=== PATIENT | female | born 1930 | race Caucasian/White ===

== ENCOUNTER 2020-05-11 17:57 | Inpatient (IN) | payer MEDICARE, BC ==
[2020-05-11] MEDS ORDERED: Polyethylene Glycol 3350 17 GM Packet PO PRN (22:34)
[2020-05-11] MEDS: Acetaminophen 500 MG TAB PO SCH ×2 (23:10→23:59)
[2020-05-11] MEDS: Cyclobenzaprine 10 MG TAB PO PRN (23:59)
[2020-05-12] MEDS: traMADol HCl 50 MG TAB PO PRN ×2 (01:52→23:27)
[2020-05-12 05:28] LABS: #Eosinphils 0.3 thou/uL (0.0-0.7); #Monocytes 0.7 thou/uL (0.11-0.59); #Neutrophils 8.6 thou/uL (1.40-6.50); %Basophils 0.3 % (0.0-1.0); %Eosinophils 2.4 % (0.0-10.0); %Lymphocytes 9.7 % (21.0-51.0); %Monocytes 6.4 % (0.0-10.0); %Neutrophils 81.2 % (42.0-75.0); Hemoglobin 10.2 g/dL (12.0-16.0); Mean Corpuscular HGB CONC 31.4 g/dL (32.0-36.0); Mean Corpuscular Hemoglobin 30.7 pg (27.0-31.0); Mean Platelet Volume 6.7 fL (7.4-10.4); Platelet Count 283 thou/uL (130-400); RBC Distribution Width 14.4 % (11.5-14.5); Red Blood Cell (RBC) Count 3.31 mill/uL (4.20-5.40); White Blood Cell (WBC) Count 10.5 thou/uL (4.8-10.8)
[2020-05-12 05:44] LABS: ALT (SGPT) 17 U/L (8-55); AST (SGOT) 19 U/L (5-34); Albumin 2.8 g/dL (3.4-4.8); Alkaline Phosphatase 60 U/L (40-110); Anion Gap 10 mmol/L (10-20); BUN (Urea Nitrogen) 19 mg/dL (9.8-20.1); Calc. Creatinine Clearance 104 mL/min (70-130); Calcium 9.5 mg/dL (7.8-10.44); Carbon Dioxide 27 mmol/L (23-31); Chloride 102 mmol/L (98-107); Estimated GFR-MDRD Greater than 90; Globulin 2.2 g/dL (2.4-3.5); Glucose 137 mg/dL (83-110); Potassium 4.2 mmol/L (3.5-5.1); Sodium 135 mmol/L (136-145)
[2020-05-12] MEDS: Levothyroxine 150 MCG TAB PO SCH (06:07)
[2020-05-12] MEDS: Acetaminophen 500 MG TAB PO SCH ×4 (06:07→23:27)
[2020-05-12] MEDS: Enoxaparin Sodium 30 MG/0.3 ML SYRINGE SC SCH ×2 (08:59→20:26)
[2020-05-12] MEDS: Lisinopril 20 MG TAB PO SCH ×2 (09:00→20:23)
[2020-05-12] MEDS: Ascorbic Acid 500 mg Chewable Tablet PO SCH ×2 (09:00→20:23)
[2020-05-12] MEDS: Fenofibrate Nanocrystallized 145 MG TAB PO SCH (09:01)
[2020-05-12] MEDS: Senokot S 8.6-50 MG TAB PO SCH ×2 (09:02→20:23)
[2020-05-12] MEDS: Ferrous Sulfate 325 MG TAB PO SCH ×2 (09:02→17:15)
[2020-05-12] MEDS: Gabapentin 100 MG CAP PO SCH ×3 (09:02→20:22)
[2020-05-12] MEDS: Magnesium Oxide 400 MG TAB PO SCH ×2 (09:02→20:23)
[2020-05-12] MEDS: Aspirin Chewable 81 MG TAB PO SCH (09:02)
[2020-05-12] MEDS: Cyclobenzaprine 10 MG TAB PO PRN (20:23)
[2020-05-12] MEDS: Atorvastatin Calcium 10 MG TAB PO SCH (20:23)
[2020-05-12] MEDS: Erythromycin Base 0.5% Oint 1 GM TUBE EA EYE SCH (20:26)
[2020-05-13] MEDS: Acetaminophen 500 MG TAB PO SCH ×4 (05:55→20:22)
[2020-05-13] MEDS: Levothyroxine 150 MCG TAB PO SCH (05:55)
--- NOTE | 2020-05-13 08:05 | HP ---
Patient of Dr. Robert Coyle. HISTORY OF PRESENT ILLNESS: The patient is an 89-year-old white female who has fallen and suffered bilateral distal femur periprosthetic fractures around her bilateral total knee replacements. These were documented as open fractures. She was given antibiotics and tetanus shot, and subsequently underwent open reduction and internal fixation with only complications of postoperative blood-loss, mild acute kidney injury. She was also found to have a T8 vertebral body fracture, but Neurosurgery is only recommended TLSO brace. She has had fair pain controlled well at the hospital at [place] and therefore, has been transferred here for continued physical therapy and care. She has comorbidities of atrial fibrillation, which is only rate controlled with only anticoagulation with aspirin. She has had a history of diverticulitis, status post partial colectomy for GI bleed with no recurrence. She has a history of hypertension, controlled to goal and recurrent urinary tract infections. PAST SURGICAL HISTORY: Positive for pacemaker placement, partial colectomy secondary to diverticulitis, multiple back surgeries, carpal tunnel surgery, bilateral knee replacements, cholecystectomy, tonsillectomy, and hysterectomy. SOCIAL HISTORY: She has been living alone at home, walking with a walker as her lives in assisted living. She is a nonsmoker, nondrinker. MEDICATIONS: On admission included: 1. Atorvastatin 10 mg nightly. 2. Flexeril 5 mg three times daily as needed. 3. Lovenox 30 mg twice daily. 4. TriCor 145 mg daily. 5. Ferrous sulfate 325 mg twice daily. 6. Vitamin C 500 twice daily. 7. Levothyroxine 150 mcg daily. 8. Lisinopril 40 mg twice daily. 9. Magnesium oxide twice daily. 10. Metoprolol 100 mg daily. 11. Pantoprazole 40 mg twice daily. 12. MiraLAX 17 g daily. 13. Tramadol 100 mg every 6 hours as needed for pain. REVIEW OF SYSTEMS: HEENT: She denies any headaches, dizziness, change in vision, hoarseness, or sore throat. PULMONARY: She denies cough, sputum production, pneumonia, asthma, or tuberculosis. CARDIOVASCULAR: She denies chest pain, orthopnea, paroxysmal nocturnal dyspnea, or edema. GASTROINTESTINAL: She denies nausea, vomiting, diarrhea, constipation, or abdominal pain. GENITOURINARY: Denies dysuria, hematuria, or nocturia. MUSCULOSKELETAL: She has bilateral fractures and complains of pain in both knees and legs. NEUROLOGIC: She denies localized numbness, weakness in arms or extremities. PHYSICAL EXAMINATION: GENERAL: The patient is an elderly white female, lying in bed, in no acute distress. Oriented x3. Only complaining about her TLSO brace. VITAL SIGNS: Showed to have temperature 97.8, pulse 84, respirations 20, O2 sats 94% on room air, and blood pressure 141/61. HEENT: Pupils are equal, round, and reactive to light and accommodation. Sclerae anicteric. Conjunctivae pale. Oral mucous membranes well hydrated. NECK: Supple. No nodes or masses. JVP is not elevated. LUNGS: Clear. CARDIAC: Shows regular rhythm. ABDOMEN: Soft and nontender. SKIN AND EXTREMITIES: Show bilateral lower leg incisions healing well. No edema, clubbing, cyanosis, or swelling of the calves. NEUROLOGIC: Intact. LABORATORY DATA: None will be done in the a.m. ASSESSMENT: An 89-year-old white female with history of recent bilateral distal femur periprosthetic fractures for prosthetic knee replacement, is recovering well with no complications , antibiotics have been given but are not required any further, although this was documented as open fracture. 1. Atrial fibrillation with rate controlled with no anticoagulation. 2. T8 vertebral body fracture, being treated with TLSO brace. 3. History of gastrointestinal bleed secondary to diverticulitis with no recent recurrence. 4. Hypertension, controlled to goal. 5. Recurrent urinary tract infection. We will monitor closely. Job ID: [id number]
--- NOTE | 2020-05-13 09:16 | PRG ---
DATE OF SERVICE: 05/12/[address] Licha Coyle. SUBJECTIVE: The patient feels well in the bed. No complaints other than uncomfortable TLSO brace. No shortness of breath or chest pain. OBJECTIVE: VITAL SIGNS: Shows temperature is 98, pulse 59, respirations 18, O2 saturations 97% on room air, and blood pressure is 148/58. LUNGS: Clear. CARDIAC: Shows regular rhythm. ABDOMEN: Soft and nontender. LABORATORY DATA: White count is 10,500, hematocrit 32. Sodium is 135, potassium 4.2, chloride 102, bicarb 27, BUN 19, creatinine 0.62, glucose 137, protein 5.0, albumin 2.8, and globulin 2.2. ASSESSMENT: 1. Stable bilateral periprosthetic distal femur fractures. 2. Stable T8 compression fracture. 3. Stable atrial fibrillation with rate controlled with no anticoagulation. 4. Hypertension, controlled to goal. 5. Recurrent UTIs. PLAN: 1. Continue pain relief with tramadol. 2. Continue PT/OT. 3. Continue prophylactic anticoagulation for 8 weeks per recommendation of Orthopedic Surgery. 4. Monitor for recurrent diverticular bleeding. Job ID: [id number]
[2020-05-13] MEDS: Lisinopril 20 MG TAB PO SCH ×2 (09:21→20:37)
[2020-05-13] MEDS: Enoxaparin Sodium 30 MG/0.3 ML SYRINGE SC SCH ×3 (09:21→20:41)
[2020-05-13] MEDS: Fenofibrate Nanocrystallized 145 MG TAB PO SCH (09:22)
[2020-05-13] MEDS: Aspirin Chewable 81 MG TAB PO SCH (09:23)
[2020-05-13] MEDS: Magnesium Oxide 400 MG TAB PO SCH ×2 (09:23→20:38)
[2020-05-13] MEDS: Gabapentin 100 MG CAP PO SCH ×3 (09:23→20:39)
[2020-05-13] MEDS: Senokot S 8.6-50 MG TAB PO SCH ×2 (09:23→20:38)
[2020-05-13] MEDS: Ferrous Sulfate 325 MG TAB PO SCH ×2 (09:23→16:42)
[2020-05-13] MEDS: Ascorbic Acid 500 mg Chewable Tablet PO SCH ×2 (09:23→20:37)
[2020-05-13 17:57] VITALS: BMI 40.5
[2020-05-13] MEDS ORDERED: Erythromycin Base 0.5% Oint 1 GM TUBE ONE (20:26)
[2020-05-13] MEDS: Erythromycin Base 0.5% Oint 1 GM TUBE EA EYE SCH (20:37)
[2020-05-13] MEDS: Atorvastatin Calcium 10 MG TAB PO SCH (20:38)
[2020-05-13] MEDS: Cyclobenzaprine 10 MG TAB PO PRN (20:38)
[2020-05-14] MEDS: traMADol HCl 50 MG TAB PO PRN
[2020-05-14] MEDS: Levothyroxine 150 MCG TAB PO SCH (05:49)
[2020-05-14] MEDS: Acetaminophen 500 MG TAB PO SCH ×4 (05:49→17:33)
[2020-05-14] MEDS: Aspirin Chewable 81 MG TAB PO SCH (08:05)
[2020-05-14] MEDS: Ascorbic Acid 500 mg Chewable Tablet PO SCH ×3 (08:05→23:19)
[2020-05-14] MEDS: Ferrous Sulfate 325 MG TAB PO SCH ×2 (08:05→17:33)
[2020-05-14] MEDS: Fenofibrate Nanocrystallized 145 MG TAB PO SCH (08:05)
[2020-05-14] MEDS: Enoxaparin Sodium 30 MG/0.3 ML SYRINGE SC SCH ×2 (08:05→20:12)
[2020-05-14] MEDS: Magnesium Oxide 400 MG TAB PO SCH ×2 (08:06→20:11)
[2020-05-14] MEDS: Gabapentin 100 MG CAP PO SCH ×3 (08:06→20:12)
[2020-05-14] MEDS: Lisinopril 20 MG TAB PO SCH ×2 (08:06→20:13)
[2020-05-14] MEDS: Senokot S 8.6-50 MG TAB PO SCH ×2 (08:07→20:12)
--- NOTE | 2020-05-14 19:32 | PRG ---
DATE OF SERVICE: 05/13/2020 SUBJECTIVE: The patient feels well lying in bed with no complaints of pain at rest. OBJECTIVE: VITAL SIGNS: Temperature is 97, pulse 71, respirations 20, O2 sats 95% on room air, and blood pressure 118/57. LUNGS: Clear. CARDIAC: Shows irregularly irregular rhythm. ABDOMEN: Soft and nontender. ASSESSMENT: 1. Stable bilateral periprosthetic distal femur fracture. 2. Stable compression fracture T8. 3. Stable atrial fibrillation with rate control. 4. Hypertension, controlled to goal. PLAN: Dr. Coyle back tonight. Continue pain relief with tramadol. Start PT/OT tomorrow. Continue prophylactic anticoagulation for 8 weeks per recommendation of orthopedic surgeon. Job ID: [id number]
--- NOTE | 2020-05-14 20:05 | PRG ---
DATE OF SERVICE: 05/14/2020 SUBJECTIVE: Ms. Munson is an 89-year-old white female, who was very independent and was at her home where she lives by herself. She was changing something on the oven door when she slipped and fell landing on both knees. She had immediate pain and had compound fractures of the distal femur, which is periprosthetic bilaterally. She was taken to the surgical suite, had to have some blood, but she had open reduction and internal fixation. She also had a T8 vertebral body fracture and was seen by Neurosurgery, who recommended a TLSO brace. She eventually was stabilized and transferred to [facility] for physical therapy and occupational therapy and pain management. She does have a history of diverticulitis status post colectomy, history of hypertension, history of recurrent urinary tract infections, and history of atrial fib for which she is not on anticoagulants because of her GI bleed. The patient states she is doing fairly well, eating well, not constipated. She states her pain is fairly well controlled. She has not had a great track record yet with physical therapy. She is nonweightbearing for 8 weeks and has bilateral leg braces. We will try to do some physical therapy if unable or she is plateaued. Then, we will need to transfer her [facility] a [facility] facility. OBJECTIVE: VITAL SIGNS: Today reveal blood pressure 114/50, pulse 60 to 66, respirations 16, O2 saturation 95% on room air, T-max 98.0. GENERAL: This is a well-developed, well-nourished, very pleasant 89-year-old independent white female, in no apparent distress at this time. HEENT: Reveals normocephalic, nontraumatic cranium. The pupils are equally round and reactive. Extraocular muscles intact. Nose and throat are slightly dry. NECK: Supple without masses, nodes, or bruits. CHEST: Clear to auscultation. No rales, rhonchi, wheezes, or cough is noted. HEART: Reveals a regular rate and rhythm. No murmurs, gallops, or rubs are noted. ABDOMEN: Difficult because of her TLSO brace, which is on. It is soft and nontender. : Deferred. EXTREMITIES: Reveal bilateral lower leg incisions and braces on. The patient has no significant swelling noted. NEUROLOGIC: She is intact. ASSESSMENT: 1. Bilateral distal femur periprosthetic fractures post ORIF. 2. Atrial fibrillation, rate controlled on no anticoagulation except for aspirin. 3. T8 vertebral fracture, treated with TLSO brace. 4. Hypertension. 5. History of recurrent urinary tract infections. 6. History of diverticulitis with gastrointestinal bleed in the past. PLAN: 1. Continue present medications. 2. Consult for Physical therapy and Occupational therapy. 3. Continue to monitor the patient's rate and continue aspirin. 4. Wear the patient's TLSO brace any time. Head of her bed is higher than 30 degrees. 5. Monitor the patient's blood pressure closely, adjust medications as needed. 6. Monitor for recurrent urinary tract infections. 7. Stress ulcer prophylaxis. 8. Decubitus precautions. 9. DVT prophylaxis. 10. Comfort measures as needed. Job ID: [id number]
[2020-05-14] MEDS: Atorvastatin Calcium 10 MG TAB PO SCH (20:11)
[2020-05-14] MEDS: Erythromycin Base 0.5% Oint 1 GM TUBE EA EYE SCH (20:12)
[2020-05-15] MEDS: Acetaminophen 500 MG TAB PO SCH ×5 (00:09→23:19)
[2020-05-15] MEDS: traMADol HCl 50 MG TAB PO PRN ×2 (00:10→23:19)
[2020-05-15] MEDS: Levothyroxine 150 MCG TAB PO SCH (05:00)
[2020-05-15] MEDS: Ascorbic Acid 500 mg Chewable Tablet PO SCH ×2 (08:31→20:25)
[2020-05-15] MEDS: Fenofibrate Nanocrystallized 145 MG TAB PO SCH (08:31)
[2020-05-15] MEDS: Ferrous Sulfate 325 MG TAB PO SCH ×2 (08:31→17:22)
[2020-05-15] MEDS: Aspirin Chewable 81 MG TAB PO SCH (08:31)
[2020-05-15] MEDS: Enoxaparin Sodium 30 MG/0.3 ML SYRINGE SC SCH ×2 (08:31→20:30)
[2020-05-15] MEDS: Gabapentin 100 MG CAP PO SCH ×3 (08:32→20:31)
[2020-05-15] MEDS: Lisinopril 20 MG TAB PO SCH ×2 (08:32→20:30)
[2020-05-15] MEDS: Magnesium Oxide 400 MG TAB PO SCH ×2 (08:32→20:31)
[2020-05-15] MEDS: Senokot S 8.6-50 MG TAB PO SCH ×2 (08:33→20:31)
--- NOTE | 2020-05-15 10:24 | PRG ---
DATE OF SERVICE: 05/15/2020 SUBJECTIVE: Ms. Munson is an 89-year-old white female. She has been very independent and has been living by herself. Unfortunately, she fell at home landing on both her knees. She previously had bilateral knee surgery, and these were compound fractures of the distal femur periprosthetic area. She was taken to surgical suite, had open reduction and internal fixation and some blood. She also had a T8 vertebral compression fracture. She was seen by Neurosurgery, who did not recommend surgery on her back, but a TLSO brace. She was eventually stabilized and now transferred to [facility] for PT, OT, and pain management. The patient states she is doing fairly well, and her pain is fairly well under good control. I did talk with Therapy while the patient and the therapists were in the room. She is supposed to be nonweightbearing on her legs for at least 8 weeks and possibly 12. I told her that most likely her therapy will run out before that, and we will most likely have to transfer her to a different facility for continued therapy. She is supposed to see Dr. Arturo Segovia on to get an idea about what our time slot is. When she plateaus, we will transfer her to halfway. OBJECTIVE: VITAL SIGNS: Today reveal blood pressure 123/71, pulse 64, respirations 20, O2 saturation 98% on room air, and T-max 98.1. PHYSICAL EXAMINATION: GENERAL: This is a well-developed, well-nourished, slightly obese white female, in no apparent distress at this time. HEENT: Reveals normocephalic and nontraumatic cranium. The pupils are equally round and reactive. Extraocular movements intact. Nose and throat are slightly dry. NECK: Supple without masses, nodes, or bruits. CHEST: Clear to auscultation. No rales, rhonchi, or wheezes are heard. HEART: Reveals a regular rate and rhythm without murmurs, gallops, or rubs. She does have a history of atrial fibrillation, but is not on anticoagulants because of her GI bleed in the past. She is rate controlled today. ABDOMEN: Soft and nontender. TLSO braces in place. : Deferred. EXTREMITIES: Reveal bilateral lower leg incisions and braces on. The right brace goes about 45 degrees and left brace set at 0. Swelling is minimal at this time. ASSESSMENT: 1. Bilateral distal femur periprosthetic fracture, status post open reduction and internal fixation. 2. Atrial fibrillation, rate controlled. The patient is on no anticoagulation except aspirin. 3. T8 vertebral compression fracture, treated with TLSO brace, nonsurgical. 4. Hypertension. 5. History of diverticulitis with gastrointestinal bleed in the past. 6. History of recurrent urinary tract infections. 7. Pain. 8. Generalized weakness. PLAN: 1. We will continue present medications. 2. Continue to monitor the patient's heart rate and continue aspirin. 3. Continue the patient to wear TLSO brace anytime her head of bed is greater than 30 degrees. 4. Continue to monitor the patient's blood pressure closely and adjust medications if needed. 5. Monitor for urinary tract infections. 6. Stress ulcer prophylaxis. 7. Decubitus precautions. 8. DVT prophylaxis. 9. Pain management. 10. Comfort measures. 11. Physical therapy and occupational therapy. Job ID: [id number]
[2020-05-15] MEDS: Cyclobenzaprine 10 MG TAB PO PRN (20:30)
[2020-05-15] MEDS: Atorvastatin Calcium 10 MG TAB PO SCH (20:31)
[2020-05-15] MEDS: Erythromycin Base 0.5% Oint 1 GM TUBE EA EYE SCH (20:32)
[2020-05-16] MEDS: Acetaminophen 500 MG TAB PO SCH ×4 (06:00→23:01)
[2020-05-16] MEDS: Levothyroxine 150 MCG TAB PO SCH (06:00)
[2020-05-16] MEDS: Ascorbic Acid 500 mg Chewable Tablet PO SCH ×2 (08:55→21:10)
[2020-05-16] MEDS: Lisinopril 20 MG TAB PO SCH ×2 (08:55→21:09)
[2020-05-16] MEDS: Fenofibrate Nanocrystallized 145 MG TAB PO SCH (08:55)
[2020-05-16] MEDS: Enoxaparin Sodium 30 MG/0.3 ML SYRINGE SC SCH ×2 (08:55→21:09)
[2020-05-16] MEDS: Senokot S 8.6-50 MG TAB PO SCH ×2 (08:56→21:08)
[2020-05-16] MEDS: Aspirin Chewable 81 MG TAB PO SCH (08:57)
[2020-05-16] MEDS: Ferrous Sulfate 325 MG TAB PO SCH ×2 (08:57→17:02)
[2020-05-16] MEDS: Magnesium Oxide 400 MG TAB PO SCH ×2 (08:57→21:08)
[2020-05-16] MEDS: Gabapentin 100 MG CAP PO SCH ×3 (08:57→21:08)
--- NOTE | 2020-05-16 17:26 | PRG ---
DATE OF SERVICE: 05/16/2020 SUBJECTIVE: Ms. Munson is a very pleasant 89-year-old white female. She is living by herself and her lives at [facility] because he needs extra care. Unfortunately, she was at home in moving her oven door off her oven when it started slipping and she lost her balance and fell. She landed on both of her knees. She had immediate pain and was brought to the emergency room and found to have compound fracture of the distal femur periprosthetic area. She was taken to the surgical suite by Dr. Segovia and had bilateral ORIF done and then placed in braces. She also had a T8 vertebral compression fracture and had a TLSO brace placed for that. She eventually was stabilized and transferred to [facility] for PT, OT, and pain management. The patient is unable to do a lot of PT and OT. We are working with transferring her back and forth to the wheelchair and to the potty, but Therapy did recommend that when therapy was completed, she is able to transfer that we transfer her to a long-term care facility until her weightbearing status changes. We need to say those skilled days for when she can participate and start walking. I certainly agree. I have called Alondra Willson, the web coordinator at [phone]. I left a message for her along those lines. I left my cell number for her to call me in case she has any questions. OBJECTIVE: VITAL SIGNS: Today reveal blood pressure 138/63, pulse 76, respirations 18, O2 saturation 96% on room air, and T-max 96.0. GENERAL: This is a well-developed, well-nourished, morbidly obese white female, who is visiting with her daughter. HEENT: Reveals normocephalic. Healing cranium from contusion on her face with a hematoma. Pupils are equally round and reactive. Extraocular movements are intact. Nose and throat are still slightly dry. NECK: Supple without masses, nodes, or bruits. CHEST: Clear to auscultation. No rales, no rhonchi. No wheezes are heard. HEART: Reveals a regular rate and rhythm. She does have a history of atrial fibrillation and is not on anticoagulants because of her GI bleed in the past and risk of bleeding again. She is rate controlled. ABDOMEN: Obese, soft, and nontender. TLSO brace is in place. : Deferred. EXTREMITIES: Reveal bilateral lower extremity incisions are clean. Braces are on. Right brace is to move about 45 degrees and left brace is set at 0. Swelling is minimal. ASSESSMENT: 1. Bilateral distal femur periprosthetic fracture, status post open reduction and internal fixation, still on nonweightbearing bilaterally. 2. Atrial fibrillation, rate controlled. The patient is on no anticoagulation because of previous gastrointestinal bleed except she is on aspirin daily. 3. T8 vertebral compression fracture, treated with a TLSO brace. 4. Hypertension. 5. History of diverticulitis with gastrointestinal bleed in the recent past. 6. History of recurrent urinary tract infections. 7. Pain. 8. Generalized weakness. PLAN: 1. Continue present medications. 2. Continue to monitor the patient's heart rate and continue aspirin. 3. Continue to encourage the patient to wear TLSO brace at anytime the head of the bed is greater than 30 degrees. 4. Continue to monitor the patient's blood pressure closely and adjust medications if needed. 5. Monitor for UTIs. 6. Stress ulcer prophylaxis. 7. Decubitus precautions. 8. DVT prophylaxis. 9. Pain management. 10. Comfort measures. 11. The patient is still nonweightbearing on both of her lower extremities. 12. Physical therapy and occupational therapy. 13. Case management consult for transferred to long-care facility. Job ID: [id number] [facility]
[2020-05-16] MEDS: Cyclobenzaprine 10 MG TAB PO PRN (21:07)
[2020-05-16] MEDS: Erythromycin Base 0.5% Oint 1 GM TUBE EA EYE SCH (21:08)
[2020-05-16] MEDS: Atorvastatin Calcium 10 MG TAB PO SCH (21:09)
[2020-05-16] MEDS: traMADol HCl 50 MG TAB PO PRN (23:01)
[2020-05-17] MEDS: Acetaminophen 500 MG TAB PO SCH ×3 (05:34→17:06)
[2020-05-17] MEDS: Levothyroxine 150 MCG TAB PO SCH (05:34)
[2020-05-17] MEDS: Fenofibrate Nanocrystallized 145 MG TAB PO SCH (08:34)
[2020-05-17] MEDS: Lisinopril 20 MG TAB PO SCH ×2 (08:34→21:24)
[2020-05-17] MEDS: Enoxaparin Sodium 30 MG/0.3 ML SYRINGE SC SCH ×2 (08:34→21:23)
[2020-05-17] MEDS: Ascorbic Acid 500 mg Chewable Tablet PO SCH ×2 (08:34→21:23)
[2020-05-17] MEDS: Gabapentin 100 MG CAP PO SCH ×3 (08:35→21:24)
[2020-05-17] MEDS: Aspirin Chewable 81 MG TAB PO SCH (08:35)
[2020-05-17] MEDS: Magnesium Oxide 400 MG TAB PO SCH ×2 (08:35→21:24)
[2020-05-17] MEDS: Ferrous Sulfate 325 MG TAB PO SCH ×2 (08:35→17:06)
[2020-05-17] MEDS: Senokot S 8.6-50 MG TAB PO SCH ×2 (08:35→21:24)
[2020-05-17] MEDS ORDERED: Bisacodyl 10 MG SUPP PR PRN (09:46)
[2020-05-17] MEDS ORDERED: Bisacodyl 10 MG SUPP PR SCH (10:00)
--- NOTE | 2020-05-17 10:26 | PRG ---
DATE OF SERVICE: 05/17/2020 SUBJECTIVE: Ms. Munson is an 89-year-old white female, who was at home when she fell landing on both knees. She had immediate pain. She previously had bilateral total knees done and she had a periprosthetic bilateral distal femur fractures. She was taken to the OR suite by Dr. Segovia and had a bilateral ORIF done. She was then placed in braces and she also had a T8 vertebral compression fracture and was instructed to wear brace. She eventually was stabilized, transferred to [facility] for PT, OT, and pain management. The patient reports that she is not able to do much therapy since she is nonweightbearing on both her lower extremities. I did talk with Alondra Willson this morning, the piano case and bench assembler and she will look into transferring her to a long-term care facility. She states she will contact both the patient and the daughter. OBJECTIVE: VITAL SIGNS: Today reveal blood pressure 123/71, pulse 67, respirations 20, O2 saturation 96%, and T-max 97.1. GENERAL: This is a well-developed, well-nourished, obese white female, in no apparent distress at this time. HEENT: Normocephalic and nontraumatic cranium. Pupils are equally round and reactive. Extraocular movements are intact. Nose and throat are slightly dry. NECK: Supple without masses, nodes, or bruits. CHEST: Clear to auscultation. No rales, rhonchi, wheezes are heard. HEART: Reveals a regular rate and rhythm. The patient does have a history of atrial fibrillation and is not on anticoagulation because of prior GI bleed and the risk of bleeding again. She is rate controlled. ABDOMEN: Obese, soft, nontender without organomegaly. TLSO braces in place. No rebound or guarding is noted. : Deferred. EXTREMITIES: Reveal lower extremity incisions are clean. Braces are on. ASSESSMENT: 1. Bilateral distal femur periprosthetic fracture, status post open reduction and internal fixation, still nonweightbearing bilaterally for 8 to 12 weeks. 2. Atrial fibrillation, rate controlled. The patient is on no anticoagulation secondary to prior GI bleed, but she is on aspirin. 3. T8 vertebral compression fracture and treated with TLSO brace. 4. Hypertension. 5. History of diverticulitis with GI bleed in the recent past. 6. History of recurrent urinary tract infection. 7. Pain. 8. Generalized weakness. PLAN: 1. Continue to monitor the patient's heart rate. Continue with aspirin. 2. Continue to encourage the patient to wear her TLSO brace at all times, anytime her head of the bed is greater than 30 degrees. 3. Monitor the patient's blood pressure closely. Adjust medications. 4. Monitor for UTIs. 5. Stress ulcer prophylaxis. 6. Decubitus precautions. 7. DVT prophylaxis. 8. Pain management. 9. Comfort measures. 10. The patient is noted to be nonweightbearing on both lower extremities. 11. Physical therapy and occupational therapy. 12. water/wastewater project manager to consult for transfer to long-term care facility. Job ID: [id number]
[2020-05-17] MEDS: Atorvastatin Calcium 10 MG TAB PO SCH (21:24)
[2020-05-17] MEDS: Erythromycin Base 0.5% Oint 1 GM TUBE EA EYE SCH (21:25)
[2020-05-18] MEDS: Acetaminophen 500 MG TAB PO SCH ×4 (02:42→16:23)
[2020-05-18] MEDS: traMADol HCl 50 MG TAB PO PRN ×2 (02:43→08:51)
[2020-05-18] MEDS: Levothyroxine 150 MCG TAB PO SCH (06:19)
[2020-05-18] MEDS: Gabapentin 100 MG CAP PO SCH ×3 (08:48→20:49)
[2020-05-18] MEDS: Senokot S 8.6-50 MG TAB PO SCH ×2 (08:48→20:49)
[2020-05-18] MEDS: Fenofibrate Nanocrystallized 145 MG TAB PO SCH (08:48)
[2020-05-18] MEDS: Magnesium Oxide 400 MG TAB PO SCH ×2 (08:48→20:48)
[2020-05-18] MEDS: Ascorbic Acid 500 mg Chewable Tablet PO SCH ×2 (08:49→20:49)
[2020-05-18] MEDS: Ferrous Sulfate 325 MG TAB PO SCH ×2 (08:49→17:02)
[2020-05-18] MEDS: Aspirin Chewable 81 MG TAB PO SCH (08:49)
[2020-05-18] MEDS: Lisinopril 20 MG TAB PO SCH ×2 (08:50→20:48)
[2020-05-18] MEDS: Enoxaparin Sodium 30 MG/0.3 ML SYRINGE SC SCH ×2 (08:50→20:49)
--- NOTE | 2020-05-18 15:33 | PRG ---
DATE OF SERVICE: 05/18/2020 SUBJECTIVE: Ms. Munson is a well-developed, slightly obese 89-year-old white female, who fell at home. She had immediate pain and had bilateral total knees done and had a periprosthetic bilateral distal femur fractures. She was taken to the OR suite by Dr. Segovia for bilateral ORIF. She was then placed in braces and deemed to be nonweightbearing for 8 to 12 weeks. She also had a T8 vertebral compression fracture and was issued a TLSO brace. She is to wear it any time her head of the bed is greater than 30 degrees. She eventually was stabilized and now transferred to [facility] for PT, OT, and pain management. She is not able to do very much in therapy, so we did consult Alondra Willson for Case Management. It was felt that she would benefit from a long-term care facility and then when she is able to able to participate in physical therapy and occupational therapy, we will move her back to swing bed for continued care. We would rather not use up her swing bed days with just routine care. OBJECTIVE: VITAL SIGNS: Blood pressure 145/60, pulse 60 to 75, respirations 18 to 20, O2 saturation 96% to 98% on room air, T-max 97.2. GENERAL: This is a well-developed, well-nourished, overweight white female, in no apparent distress at this time. HEENT: Normocephalic and nontraumatic cranium. Pupils equally round, reactive. Extraocular movement is intact. Nose and throat are slightly dry. NECK: Supple without masses, nodes, or bruits. CHEST: Clear to auscultation. No rales, rhonchi, wheezes, or cough is heard. HEART: Regular rate and rhythm. The patient is rate controlled, does have a history of atrial fibrillation. She is not on any anticoagulation because of prior GI bleed and her increased risk of bleeding again. ABDOMEN: Obese, soft, nontender without organomegaly. Normal bowel sounds are noted. No rebound or guarding is noted. TLSO brace is in place. No rebound or guarding is noted. : Deferred. EXTREMITIES: Lower extremity incisions are good. Braces are on. ASSESSMENT: 1. Bilateral distal femur periprosthetic fracture, status post open reduction and internal fixation, both lower extremities, and the patient is still nonweightbearing for 8 to 12 weeks. 2. Atrial fibrillation, rate controlled, on no anticoagulation secondary to prior GI bleed, but she is on aspirin. 3. T8 vertebral compression fracture, treated with TLSO brace. 4. Hypertension. 5. History of diverticulitis with GI bleed in the recent past. 6. History of recurrent urinary tract infection. 7. Generalized weakness. I did contact Alondra Willson for Case Management. Case Management has contacted both Ms. Munson and her daughter and is working on placement in a long-term care facility. They hope to have her transferred on Thursday or Thursday. PLAN: 1. Continue with plans for long-term facility admission until the patient is able to participate for PT and OT. 2. Continue to monitor the patient's heart rate. 3. Continue aspirin. 4. Continue to encourage the patient to wear TLSO brace at all times any time the head of bed is greater than 30 degrees. 5. Monitor the patient's blood pressure closely, adjust medications. 6. Monitor for urinary tract infections. 7. Stress ulcer prophylaxis. 8. Decubitus precautions. 9. DVT prophylaxis. 10. Pain management. 11. Comfort measures. 12. Physical therapy, Occupational therapy for transfers, but the patient is noted to be nonweightbearing on both lower extremities. 13. Case Management for transferred to long-term acute care facility. Job ID: [id number]
[2020-05-18] MEDS: Atorvastatin Calcium 10 MG TAB PO SCH (20:48)
[2020-05-18] MEDS ORDERED: Erythromycin Base 0.5% Oint 1 GM TUBE ONE (21:07)
[2020-05-18] MEDS: Erythromycin Base 0.5% Oint 1 GM TUBE EA EYE SCH (21:09)
[2020-05-19] MEDS: Acetaminophen 500 MG TAB PO SCH ×5 (00:16→23:38)
[2020-05-19] MEDS: Levothyroxine 150 MCG TAB PO SCH (04:56)
[2020-05-19] MEDS: Enoxaparin Sodium 30 MG/0.3 ML SYRINGE SC SCH ×2 (08:17→21:17)
[2020-05-19] MEDS: Ferrous Sulfate 325 MG TAB PO SCH ×2 (08:17→17:55)
[2020-05-19] MEDS: Aspirin Chewable 81 MG TAB PO SCH (08:17)
[2020-05-19] MEDS: Ascorbic Acid 500 mg Chewable Tablet PO SCH ×2 (08:17→21:18)
[2020-05-19] MEDS: Fenofibrate Nanocrystallized 145 MG TAB PO SCH (08:18)
[2020-05-19] MEDS: Lisinopril 20 MG TAB PO SCH ×2 (08:18→21:17)
[2020-05-19] MEDS: Gabapentin 100 MG CAP PO SCH ×3 (08:18→21:17)
[2020-05-19] MEDS: Magnesium Oxide 400 MG TAB PO SCH ×2 (08:19→21:17)
[2020-05-19] MEDS: Senokot S 8.6-50 MG TAB PO SCH ×2 (08:19→21:16)
[2020-05-19] MEDS: Erythromycin Base 0.5% Oint 1 GM TUBE EA EYE SCH (21:17)
[2020-05-19] MEDS: Atorvastatin Calcium 10 MG TAB PO SCH (21:18)
[2020-05-19] MEDS: traMADol HCl 50 MG TAB PO PRN (23:37)
[2020-05-20] MEDS: Acetaminophen 500 MG TAB PO SCH ×4 (05:15→23:50)
[2020-05-20] MEDS: Levothyroxine 150 MCG TAB PO SCH (05:15)
[2020-05-20] MEDS: Ascorbic Acid 500 mg Chewable Tablet PO SCH ×2 (08:49→20:51)
[2020-05-20] MEDS: Enoxaparin Sodium 30 MG/0.3 ML SYRINGE SC SCH ×2 (08:49→20:55)
[2020-05-20] MEDS: Aspirin Chewable 81 MG TAB PO SCH (08:49)
[2020-05-20] MEDS: Ferrous Sulfate 325 MG TAB PO SCH ×2 (08:49→17:08)
[2020-05-20] MEDS: Gabapentin 100 MG CAP PO SCH ×3 (08:50→20:51)
[2020-05-20] MEDS: Magnesium Oxide 400 MG TAB PO SCH ×2 (08:50→20:51)
[2020-05-20] MEDS: Fenofibrate Nanocrystallized 145 MG TAB PO SCH (08:50)
[2020-05-20] MEDS: Lisinopril 20 MG TAB PO SCH ×2 (08:53→20:52)
[2020-05-20] MEDS: Senokot S 8.6-50 MG TAB PO SCH ×2 (09:02→20:55)
[2020-05-20] MEDS: Atorvastatin Calcium 10 MG TAB PO SCH (20:51)
[2020-05-20] MEDS: Erythromycin Base 0.5% Oint 1 GM TUBE EA EYE SCH (20:52)
[2020-05-20] MEDS: traMADol HCl 50 MG TAB PO PRN (23:50)
[2020-05-21] MEDS: Levothyroxine 150 MCG TAB PO SCH (05:33)
[2020-05-21] MEDS: Acetaminophen 500 MG TAB PO SCH ×4 (05:33→23:48)
[2020-05-21] MEDS: Enoxaparin Sodium 30 MG/0.3 ML SYRINGE SC SCH ×2 (08:49→20:36)
[2020-05-21] MEDS: Gabapentin 100 MG CAP PO SCH ×3 (08:50→20:36)
[2020-05-21] MEDS: Ascorbic Acid 500 mg Chewable Tablet PO SCH ×2 (08:51→20:36)
[2020-05-21] MEDS: Lisinopril 20 MG TAB PO SCH ×2 (08:51→20:34)
[2020-05-21] MEDS: Senokot S 8.6-50 MG TAB PO SCH ×2 (08:51→20:35)
[2020-05-21] MEDS: Ferrous Sulfate 325 MG TAB PO SCH ×2 (08:52→17:38)
[2020-05-21] MEDS: Magnesium Oxide 400 MG TAB PO SCH ×2 (08:52→20:36)
[2020-05-21] MEDS: Aspirin Chewable 81 MG TAB PO SCH (08:52)
[2020-05-21] MEDS: Fenofibrate Nanocrystallized 145 MG TAB PO SCH (08:54)
--- NOTE | 2020-05-21 10:22 | PRG ---
DATE OF SERVICE: 05/21/2020 SUBJECTIVE: Ms. Brown is a well-developed, well-nourished, obese 89-year-old white female. She fell at home and had immediate pain. She had bilateral total knees done because of her periprosthetic bilateral distal femur fractures. She was taken to the OR suite by Dr. Segovia for that procedure. Then, placed in braces and she is to be nonweightbearing for the next 8 to 12 weeks. She has been here for a total of 10 days now and is being transferred to [facility] possibly tomorrow or the next day pending their acceptance at [facility]. She also had a T8 vertebral compression fracture, is supposed to wear a TLSO brace anytime her head of the bed is greater than 30 degrees. She eventually stabilized and she is here for transfer training and pain management. We did contact, Alondra Willson, Case Management and she has contacted [facility] for acceptance. We are waiting on their approval. OBJECTIVE: VITAL SIGNS: Today reveal blood pressure this morning was slightly elevated at 171/70, typically is in the 120s to 130s; pulse 60 to 77; respirations 18; O2 saturation 94% to 98% on room air; and T-max 97.7. GENERAL: This is a well-developed, well-nourished, pleasant, obese white female, in no apparent distress at this time. HEENT: Reveals normocephalic, nontraumatic cranium. Pupils equally round, reactive. Extraocular movements are intact. Nose and throat are slightly dry, but clear. NECK: Supple without masses, nodes, or bruits. CHEST: Clear to auscultation. Breath sounds are distant. No rales, rhonchi, wheezes, or cough are noted. HEART: Reveals a regular rate and rhythm, which is rate controlled. She has a history of atrial fibrillation. She is not on any anticoagulation because of prior GI bleed and her risk of falling and bleeding again. ABDOMEN: Morbidly obese, soft, nontender. Normal bowel sounds noted in all 4 quadrants. No rebound or guarding is noted. TLSO brace is in place anytime her head of the bed is greater than 30 degrees. No rebound or guarding is noted. : Deferred. EXTREMITIES: Reveal incisions are looking good. There is a skin blister on the left side, which is intact. Skin blister on the right side has popped and drained minimally. ASSESSMENT: 1. Bilateral distal femur periprosthetic fracture, status post open reduction and internal fixation. The patient is nonweightbearing for the next 8 to 12 weeks. 2. Atrial fibrillation, rate controlled. No anticoagulation secondary to gastrointestinal bleed and fall risk. 3. Vertebral compression fracture of T8, treated with TLSO brace. 4. Hypertension. 5. History of recurrent urinary tract infections. 6. History of diverticulitis with gastrointestinal bleed in the recent past. 7. Generalized weakness. 8. Contact with, Alondra Willson, Case Management for transfer. PLAN: 1. We are awaiting acceptance from [facility] for the patient to be transferred there. 2. We will continue PT and OT for transfers and stabilization and increasing strength. 3. Continue to monitor the patient's heart rate. 4. Continue aspirin. 5. Continue the patient to wear TLSO brace at all times anytime the head of the bed is greater than 30 degrees. 6. Monitor the patient's blood pressure closely and adjust medications. 7. Monitor for UTIs. 8. Stress ulcer prophylaxis. 9. Decubitus precautions. 10. DVT prophylaxis. 11. Pain management. 12. Comfort measures. 13. PT and OT for transfers. 14. Case Management is awaiting Wade Medrano's answer. Job ID: [id number]
[2020-05-21 14:42] LABS: Bilirubin Negative (Negative); Blood, Urine Negative (Negative); Clarity Clear (Clear); Glucose, Urine (Dipstick) Negative (Negative); Ketone, Urine Negative (Negative); Leukocyte Small (Negative); Nitrite Negative (Negative); Protein, Urine (Dipstick) Negative (Neg-Trace); Specific Gravity, Urine 1.015 (1.005-1.030)
[2020-05-21 15:50] LABS: Bacteria/HPF Rare-Few HPF (None Seen); Squamous Epithelial 0-3 HPF (0-3); WBC/HPF 0-3 HPF (0-3)
[2020-05-21] MEDS: Erythromycin Base 0.5% Oint 1 GM TUBE EA EYE SCH (20:36)
[2020-05-21] MEDS: Atorvastatin Calcium 10 MG TAB PO SCH (20:36)
[2020-05-21] MEDS: traMADol HCl 50 MG TAB PO PRN (23:48)
[2020-05-22] MEDS: Levothyroxine 150 MCG TAB PO SCH (05:30)
[2020-05-22] MEDS: Acetaminophen 500 MG TAB PO SCH ×4 (05:30→23:49)
[2020-05-22 05:50] LABS: Band 4 % (5-11); Eosinophils 4 % (0-10); Hemoglobin 10.1 g/dL (12.0-16.0); Lymphocytes 14 % (21-51); MDiff Complete? YES; Mean Corpuscular Hemoglobin 30.6 pg (27.0-31.0); Mean Platelet Volume 6.2 fL (7.4-10.4); Monocytes 6 % (0-10); Neutrophil 69 % (42-75); Platelet Count 295 thou/uL (130-400); Platelet Morphology Comment Appears Adequate; RBC Distribution Width 16.5 % (11.5-14.5); RBC Morphology Normal; Reactive Lymphocytes 2 % (0-10); White Blood Cell (WBC) Count 4.6 thou/uL (4.8-10.8)
[2020-05-22 05:55] LABS: ALT (SGPT) 18 U/L (8-55); AST (SGOT) 25 U/L (5-34); Albumin 2.8 g/dL (3.4-4.8); Alkaline Phosphatase 174 U/L (40-110); Anion Gap 11 mmol/L (10-20); BUN (Urea Nitrogen) 24 mg/dL (9.8-20.1); Bilirubin, Total 0.8 mg/dL (0.2-1.2); Calc. Creatinine Clearance 92 mL/min (70-130); Calcium 9.9 mg/dL (7.8-10.44); Carbon Dioxide 29 mmol/L (23-31); Chloride 102 mmol/L (98-107); Estimated GFR-MDRD 80; Globulin 2.4 g/dL (2.4-3.5); Glucose 110 mg/dL (83-110); Potassium 4.6 mmol/L (3.5-5.1); Protein, Total 5.2 g/dL (6.0-8.3); Sodium 137 mmol/L (136-145)
[2020-05-22] MEDS: Magnesium Oxide 400 MG TAB PO SCH ×2 (08:35→20:44)
[2020-05-22] MEDS: Fenofibrate Nanocrystallized 145 MG TAB PO SCH (08:36)
[2020-05-22] MEDS: Ferrous Sulfate 325 MG TAB PO SCH ×2 (08:36→17:03)
[2020-05-22] MEDS: Aspirin Chewable 81 MG TAB PO SCH (08:36)
[2020-05-22] MEDS: Gabapentin 100 MG CAP PO SCH ×3 (08:36→20:44)
[2020-05-22] MEDS: Ascorbic Acid 500 mg Chewable Tablet PO SCH ×2 (08:36→20:45)
[2020-05-22] MEDS: Enoxaparin Sodium 30 MG/0.3 ML SYRINGE SC SCH ×2 (08:37→20:42)
[2020-05-22] MEDS: Lisinopril 20 MG TAB PO SCH ×2 (08:37→20:43)
[2020-05-22] MEDS: Senokot S 8.6-50 MG TAB PO SCH ×2 (08:37→20:42)
--- NOTE | 2020-05-22 10:31 | PRG ---
DATE OF SERVICE: 05/22/2020 SUBJECTIVE: Ms. Munson is an 89-year-old white female, who was very independent living by herself. She unfortunately fell at home. She was taken to the hospital, found to have bilateral periprosthetic distal femur fractures. She was taken to the OR suite by Dr. Segovia and he proceeded to do bilateral ORIF of each fracture. She was then placed in braces and deemed to be nonweightbearing for the next 8 to 12 weeks. She was stabilized and transferred to [facility] for physical therapy and occupational therapy. The patient has been here 11 days and actually is unable to participate very much in her PT because she also has a T8 vertebral compression fracture. She is supposed to wear TLSO brace, in time her head of her bed is up greater than 30 degrees and put on her bilateral braces for her legs, which were nonweightbearing for 8 to 12 weeks. Case Management again contacted and the patient is pending acceptance at [facility] in [place], where they will continue conservative therapy until the patient is ready for physical therapy and occupational therapy. At that time, most likely the patient may be transferred back here. OBJECTIVE: VITAL SIGNS: Today reveal blood pressure this morning 115/58, pulse is 60 to 64, respirations 18 to 20, O2 saturation 97% on room air, T-max is 97.8. GENERAL: This is a well-developed, well-nourished, slightly obese white female, in no apparent distress at this time. HEENT: Normocephalic and nontraumatic cranium. Pupils equally round and reactive. Extraocular movements are intact. Nose and throat are slightly dry. NECK: Supple without masses, nodes, or bruits. CHEST: Clear to auscultation. Breath sounds are distant, but no rales, rhonchi, wheezes, or cough is heard. HEART: Reveals a regular rate and rhythm, which is rate control. She does have a history of atrial fibrillation. She is not on any anticoagulation. She has had prior GI bleed and risk of falling and bleeding again. ABDOMEN: Morbidly obese, soft, nontender. Normal bowel sounds are noted. No rebound or guarding is noted. TLSO brace is in place, in time the head of her bed is up at 30 degrees for her T8 fracture. No rebound or guarding is noted. : Deferred. EXTREMITIES: Reveal no clubbing, cyanosis, or edema. Incisions look good. SKIN: Blisters are resolving. ASSESSMENT: 1. Bilateral distal femur periprosthetic fracture, status post open reduction and internal fixation bilaterally. 2. The patient is nonweightbearing on the lower extremities for the next 8 to 12 weeks. 3. Vertebral compression fracture at T8, treated with a TLSO brace. 4. Atrial fibrillation, rate controlled. No anticoagulation secondary to GI bleeds and risk of falls. 5. Hypertension. 6. History of recurrent infections. 7. History of diverticulitis with GI bleeds in the recent past. 8. Generalized weakness. 9. Labs, which is pretty much all normal and improving. PLAN: 1. We are awaiting acceptance from [facility] for the patient be transferred to [facility]. 2. Continue PT and OT at this time for transfers and stabilization and increasing strength. 3. Continue to monitor the patient's heart rate. 4. Continue aspirin. 5. Continue the patient to wear TLSO brace at all times, in time the head of bed is greater than 30 degrees. 6. We will monitor the patient's blood pressure closely. Adjust medications if needed. 7. Stress ulcer prophylaxis. 8. Decubitus precautions. 9. DVT prophylaxis. 10. Pain management. 11. Monitor the patient for recurrent UTIs. 12. Comfort measures. 13. Case Management consultation is still pending and awaiting orders for transfer to [facility] possibly tomorrow. Job ID: [id number]
[2020-05-22] MEDS: Atorvastatin Calcium 10 MG TAB PO SCH (20:42)
[2020-05-22] MEDS: Erythromycin Base 0.5% Oint 1 GM TUBE EA EYE SCH (20:42)
[2020-05-22] MEDS: traMADol HCl 50 MG TAB PO PRN (23:48)
[2020-05-23] MEDS: Levothyroxine 150 MCG TAB PO SCH (05:11)
[2020-05-23] MEDS: Acetaminophen 500 MG TAB PO SCH ×2 (05:11→11:39)
[2020-05-23 07:53] VITALS: BP 151/71; TEMP 97.8
[2020-05-23] MEDS: Ferrous Sulfate 325 MG TAB PO SCH (08:13)
[2020-05-23] MEDS: Aspirin Chewable 81 MG TAB PO SCH (08:14)
[2020-05-23] MEDS: Ascorbic Acid 500 mg Chewable Tablet PO SCH (08:14)
[2020-05-23] MEDS: Enoxaparin Sodium 30 MG/0.3 ML SYRINGE SC SCH (08:14)
[2020-05-23] MEDS: Gabapentin 100 MG CAP PO SCH ×2 (08:15→14:19)
[2020-05-23] MEDS: Fenofibrate Nanocrystallized 145 MG TAB PO SCH (08:15)
[2020-05-23] MEDS: Lisinopril 20 MG TAB PO SCH (08:15)
[2020-05-23] MEDS: Magnesium Oxide 400 MG TAB PO SCH (08:15)
[2020-05-23] MEDS: Senokot S 8.6-50 MG TAB PO SCH (08:20)
--- NOTE | 2020-05-23 19:41 | DIS ---
DATE OF ADMISSION: 05/11/2020 DATE OF DISCHARGE: 05/23/2020 HOSPITAL COURSE: Ms. Munson is an 89-year-old white female, who fell at home. She suffered bilateral distal femur periprosthetic fractures. These were documented as open fractures. She was given antibiotics, tetanus shot, and underwent open reduction and internal fixation of both of them. She did have some postop blood loss and mild acute renal insufficiency. She was also found to have a T8 vertebral fracture. She was seen by Neurosurgery that recommended a TLSO brace. She has had fair pain control at the hospital at [place] and now was transferred to [facility] for physical therapy and occupational therapy. The patient has comorbidities of atrial fibrillation, which is rate controlled with her only anticoagulation with aspirin. She has a history of diverticulitis. Status post partial colectomy with GI bleed with no recurrence. She has a history of hypertension, rate controlled A fib, recurrent urinary tract infections. The patient was stabilized here, has reached maximum medical and physical therapy benefit because she is nonweightbearing for the next 7 to 11 weeks. She is transferred to [facility] for continued correction care. When she is better and her surgeon deems that she is ready for weightbearing, most likely, she will go back to physical therapy and occupational therapy. PRESENT MEDICATIONS: Reveal she is presently on; 1. Tylenol 1000 mg q.6 hours scheduled. 2. Vitamin C 500 mg b.i.d. 3. Aspirin 81 mg a day. 4. Lipitor 10 mg a day. 5. Flexeril 5 mg p.o. t.i.d. p.r.n. muscle spasm. 6. Lovenox 30 mg subcu at 0900 hours and 2100 hours. 7. Tricor 145 mg daily. 8. Ferrous sulfate 325 mg daily. 9. Gabapentin 100 mg p.o. t.i.d. 10. Levothyroxine 150 mcg daily. 11. Lisinopril 40 mg b.i.d. 12. Mag-Ox 400 mg b.i.d. 13. Metoprolol succinate 100 mg daily. 14. Pantoprazole 40 mg b.i.d. 15. MiraLAX 17 g daily p.r.n. constipation. 16. Senokot-S two tablets p.o. b.i.d. scheduled. 17. Tramadol 100 mg q.6 hours p.r.n. pain. PHYSICAL EXAMINATION: VITAL SIGNS: Today reveal blood pressure 151/70, last night was 116/56; pulse 62; respirations 18; O2 saturation 98% on room air; T-max 97.8. GENERAL: This is a well-developed, well-nourished, obese white female, in no apparent distress at this time. HEENT: Reveals normocephalic. The patient has a bruise on her left forehead and across the forehead where she hit her head. Pupils are equal, round, and reactive. Extraocular movements are intact. Nose and throat are clear, but slightly dry. NECK: Supple without masses, nodes, or bruits. CHEST: Clear to auscultation. Breath sounds are noted to be distant, but no rales, rhonchi, wheezes, or cough is heard. HEART: Reveals a regular rate and rhythm, which is rate controlled. She does have a history of atrial fibrillation. She is not on any anticoagulation because she has had prior GI bleeds and the risk of falling and bleeding again. ABDOMEN: Morbidly obese, soft, nontender without organomegaly. Normal bowel sounds are noted in all 4 quadrants. TLSO brace is in place any time the head of her bed is greater than 30 degrees for her T8 vertebral fracture. No rebound or guarding is noted. : Deferred. EXTREMITIES: Reveal no clubbing, cyanosis, or edema. Incisions looked good. Blisters resolved. ASSESSMENT: 1. Bilateral distal femur periprosthetic fracture, status post open reduction and internal fixation bilaterally. 2. The patient is nonweightbearing on lower extremities for the next 7 to 11 weeks per her orthopedic surgeon. 3. Vertebral compression fracture of T8, treated with a TLSO brace, which she is to wear any time her head of the bed is greater than 30 degrees. 4. Atrial fibrillation, rate controlled. No anticoagulation secondary to GI bleeds and risk of falls. 5. Hypertension. 6. History of recurrent infections. 7. History of diverticulitis with GI bleeds in the past. 8. Generalized weakness. 9. Labs are normal. PLAN: 1. The patient has been accepted at [facility] and we transferred this afternoon right after lunch. 2. Continue PT and OT this morning and then we will stop those, so she will have continued days when she finishes her recovery and is able to walk for PT/OT. 3. Continue to monitor the patient's heart rate. 4. Continue aspirin. 5. Continue the patient to wear TLSO brace at all times and keep the head of the bed up greater than 30 degrees. 6. Monitor the patient's blood pressure closely and adjust medications as needed. 7. Stress ulcer prophylaxis. 8. Decubitus precautions. 9. DVT prophylaxis. 10. Pain management. 11. Monitor the patient for recurrent UTIs. 12. Comfort measures. 13. Case management has the patient moving to room 507 at [facility]. Job ID: [id number] [facility]
== END 2020-05-23 16:10 | DRG 560 ==
LOC: NAV ACUTE 17:57
PROVIDERS: ADMIT Family Medicine; ATTEND Family Medicine
DX: S72.491D Other fracture of lower end of right femur, subsequent encounter for closed fracture with routine healing (principal); S22.068A Other fracture of T7-T8 thoracic vertebra, initial encounter for closed fracture; M97.8XXA Periprosthetic fracture around other internal prosthetic joint, initial encounter; Z68.41 Body mass index [BMI] 40.0-44.9, adult; N28.9 Disorder of kidney and ureter, unspecified; I10 Essential (primary) hypertension; Z96.653 Presence of artificial knee joint, bilateral; I48.91 Unspecified atrial fibrillation; E66.9 Obesity, unspecified; R53.1 Weakness; Z87.440 Personal history of urinary (tract) infections; Z90.49 Acquired absence of other specified parts of digestive tract; S72.492E Other fracture of lower end of left femur, subsequent encounter for open fracture type I or II with routine healing; S72.491E Other fracture of lower end of right femur, subsequent encounter for open fracture type I or II with routine healing; Z95.0 Presence of cardiac pacemaker; Z90.710 Acquired absence of both cervix and uterus; Z79.01 Long term (current) use of anticoagulants
CPT/HCPCS: 36415; 80053; 81001; 83880; 85025; J1650